=== PATIENT | female | born 1985 | race Caucasian/White ===

== ENCOUNTER 2016-06-26 10:20 | Emergency (ER) | payer BC ==
[~2016-06-26] VITALS: Ht 154.9 cm; Wt 59.0 kg
[~2016-06-26 10:20] MED LIST: ATIVAN0.5 MG PO
[2016-06-26 10:27] VITALS: BP 130/79
--- NOTE | 2016-06-26 10:30 | NUR ---
PT AMBULATED TO BED 5
--- NOTE | 2016-06-26 10:35 | NUR ---
DR BELLO AT BEDSIDE ASSESSING AAO, COOPERATIVE PT
--- NOTE | 2016-06-26 10:35 | NUR ---
SINUS INFECTION X5 DAYS - EARACHE, HEADACHE, CONGESTION; DENIES N/V/D; SKIN IS PINK/WARM/DRY; AAOX4 WITH EVEN AND STEADY GAIT; LUNGS CLEAR BL; HR EVEN AND REGULAR; PT DENIES ANY FEVER, CP, SOB, OR COUGH AT THIS TIME; PATIENT STATES PAIN OF 10/10 AT THIS TIME; VSS; PATIENT POSITIONED FOR COMFORT; HOB ELEVATED; BEDRAILS UP X2; BED DOWN. ER MD MADE AWARE OF PT STATUS.
[2016-06-26] MEDS ORDERED: KETOROLAC 60 MG/2 ML VIAL IM ONE (10:45)
--- NOTE | 2016-06-26 11:40 | NUR ---
Patient discharged with v/s stable. Written and verbal after care instructions given and explained. Patient alert, oriented and verbalized understanding of instructions. Ambulatory with steady gait. All questions addressed prior to discharge. ID band removed. Patient advised to follow up with PMD. Rx of MOTRIN, SUDAFED, NORCO, AUGMENTIN given. Patient educated on indication of medication including possible reaction and side effects. Opportunity to ask questions provided and answered.
[2016-06-26 11:45] VITALS: BP 116/74
== END 2016-06-26 11:40 | disposition home or self-care (01) ==
LOC: MED 10:20
DX: J32.9 Chronic sinusitis, unspecified (principal)
CPT/HCPCS: 81002; 81025; 96372; 99283; J1885

== ENCOUNTER 2018-01-11 14:38 | Inpatient (IN) | payer SELFPAY ==
[~2018-01-11] VITALS: Ht 160 cm; Wt 99.8 kg
[2018-01-11 14:57] VITALS: BP 119/70
--- NOTE | 2018-01-11 15:02 | NUR ---
PT TAKEN TO THE LOBBY AT THIS TIME TO WAIT FOR THE NEXT AVAILABLE BED.
--- NOTE | 2018-01-11 15:24 | NUR ---
AMBULATES W/ STEADY GAIT TO BED 1 AT THIS TIME
--- NOTE | 2018-01-11 15:30 | NUR ---
32 YO F BIB SELF W/ C/O CONGESTION AND COUGH X 5 DAYS. PT REPORTS THAT THE COUGH IS PERSISTENT. N/V PRESENT, UNSURE IF RELATED TO ILLNESS OR . PT IS 9 MONTHS . . PT DUE DATE IS TOMORROW. PT REPORTS MILD CRAMPING WHEN SHE COUGHS. PT AAOX4, GCS 15, CMS INTACT, RR EVEN AND UNLABORED, LUNGS CLEAR. AMBULATORY W/ STEADY GAIT. LOWER ABDOMINAL PRESSURE PAIN &LBP 7/10 HX FIBROMYALGIA RX PRENATALS
[2018-01-11] MEDS ORDERED: ALBUTEROL 0.083% 2.5 MG/3 ML NEBU INH ONE (16:30)
--- NOTE | 2018-01-11 16:39 | NUR ---
ADMITTING DX: COUGH PATIENT DENIES COPD ASTHMA BRONCITIS EDUCATION PROVIDED TO PATIENT WITH ACKNOWLEDGEMENT ON HHN THERAPY AND RESPIRATORY DRUGS [facility] THERAPY GIVEN ORDERED TOLERATED WELL
--- NOTE | 2018-01-11 17:26 | NUR ---
US AT BEDSIDE
--- NOTE | 2018-01-11 18:01 | NUR ---
Patient discharged with v/s stable. Written and verbal after care instructions given and explained. Patient alert, oriented and verbalized understanding of instructions. Wheel Chair Assisted with to LD. All questions addressed prior to discharge. ID band removed. Patient advised to follow up with PMD. Rx of ALBUTEROL given. Patient educated on indication of medication including possible reaction and side effects. Opportunity to ask questions provided and answered.
[2018-01-11 19:09] VITALS: BP 126/65
[2018-01-11] MEDS ORDERED: NALBUPHINE 10 MG/ML AMP IM PRN (20:40)
[2018-01-11] MEDS ORDERED: PREN-546 PO (21:29)
[2018-01-11] MEDS ORDERED: FERR325E14 PO (21:29)
== END 2018-01-11 20:50 | disposition left against medical advice (07) | DRG 781 ==
LOC: MED 14:38 → MLD 18:00
PROVIDERS: ADMIT Obstetrics & Gynecology; ATTEND Obstetrics & Gynecology
DX: O26.893 Other specified pregnancy related conditions, third trimester (principal); N94.89 Other specified conditions associated with female genital organs and menstrual cycle; R05 Cough; Z53.21 Procedure and treatment not carried out due to patient leaving prior to being seen by health care provider; Z3A.36 36 weeks gestation of pregnancy
CPT/HCPCS: 76805; 81025; 94640; 99284; J7613; Q0092